=== PATIENT | male | born 1955 | race Caucasian/White ===

== ENCOUNTER 2017-08-07 06:45 | Day surgery (SDC) | payer MEDICARE, OTHER ==
--- NOTE | 2017-08-05 21:34 | EKG ---
[facility] [address] [facility] [place] [address] Signed Marked sinus bradycardia Abnormal ECG No previous ECGs available Confirmed by HEIDI ELIZABETH MD ([id number]) on 08/05/2017 9:34:52 PM Electronically Signed By: HEIDI ELIZABETH MD 08/05/17 2134 PATIENT NAME: JASE JAMES KYE Electrocardiogram DATE OF : 59 PHYSICIAN: HEIDI ELIZABETH MD REPORT #: [id number] REPORT IS CONFIDENTIAL AND NOT TO BE RELEASED WITHOUT AUTHORIZATION
[~2017-08-07] VITALS: Ht 172.7 cm; Wt 65.8 kg
[~2017-08-07 06:45] MED LIST: ARICEPT10 MG PO; ASPIRIN325 MG PO; CITALOPRAM HBR10 MG PO; FOLIC ACID1 MG PO; LEVOTHYROXINE150 MCG PO; LISINOPRIL-HCT1 EAC1 PO; METOPROLOL SUC100 MG PO; MOBIC15 MG PO; SERTRALINE HCL50 MG PO; SIMVASTATIN40 MG PO; VITAMIN D250000 UNIT PO; XANAX XR0.5 MG PO
--- NOTE | 2017-08-07 08:24 | NUR ---
08/07/17 0824 Inga Teixeira 0816-PATIENT ARRIVED TO PACU ON 4L NC O2 SAT 98% PATIENT NONAROUSABLE LAYING LEFT LATERAL. ABDOMEN SOFT.
--- NOTE | 2017-08-07 14:35 | NUR ---
PT ALERT, ORIENTED AND SUPPORTED BY FERNANDO. BOTH VERY PLEASANT, SEEMED TO HANDLE PREP APPROPRIATELY. HAVE HAD NUMEROUS SCOPES, FERNANDO EXPRESSED SOME FEAR WITH THIS SCOPE. WE DEBRIEFED, AND ENCOURAGED HER TO NOT WORRY ABOUT THINGS OUT OF OUR CONTROL AND THINGS WE MAY NOT NEED TO. SHE ACKNOWLEDGED, THANKED ME FOR VISITING. STAFF CAME IN TO CARE FOR PT. WILL FOLLOW NEEDED
--- NOTE | 2017-08-14 06:10 | OR ---
[facility] [address] [place], [place] [address] Signed DATE OF OPERATION: 08/07/2017 SURGEON: Jase Morrell MD PREOPERATIVE DIAGNOSES: 1. Personal history of colonic polyps in 2011. 2. Internal hemorrhoids. POSTOPERATIVE DIAGNOSES: 1. Moderate internal hemorrhoids. 2. Minimal external hemorrhoids. 3. A 3 mm polyp at base of the appendiceal orifice. 4. Minimal sigmoid diverticulosis. PROCEDURE: Colonoscopy with hot biopsy. ESTIMATED BLOOD LOSS: None. INDICATIONS: Jase is a 62-year-old gentleman, who returns today for followup colonoscopy. He has had a previous stroke, so his does have to help him a little bit. In 2011, his colonoscopy revealed some internal hemorrhoids as well as adenomatous polyp from the colon. There is no family history of colon cancer or polyps. We did use an anesthesia provider last time for airway control as well as to maintain his even blood pressure during because of his stroke. In addition, he uses alprazolam and citalopram each day. Therefore, simple Versed and fentanyl would not be enough to get him asleep. Consequently, we asked an anesthesia provider to help us once again. I had reviewed colonoscopy with Jase and his . They understand the nature of the test along with the risks including, but not limited to, gas bloating, crampy abdominal pain, bleeding, perforation, requiring surgery, and missed diagnosis. They had expressed understanding and wished to proceed. PROCEDURE NOTE: Jase was taken into our endoscopy suite and placed in the left lateral decubitus position. He was given IV sedation with propofol per our nurse it service continuity supervisor. A digital rectal exam was performed and again, he has a nodule in the prostate, but it was evaluated previously and found to be negative. He also has just some small external hemorrhoids. The adult colonoscope was then passed easily around into the cecum under Electronically Signed By: JASE MORRELL MD 08/14/17 0610 PATIENT NAME: JASE JAMES OPERATIVE REPORT DATE OF : 59 REPORT #: [id number] PHYSICIAN: JASE MORRELL MD PCP: CARTER SIMS DO REPORT IS CONFIDENTIAL AND NOT TO BE RELEASED WITHOUT AUTHORIZATION [facility] [address] [place], [place] [address] Signed direct visualization of camera without difficulty. His prep was good. It looked like he had a tiny polypoid 3 mm lesion at the opening of the appendiceal orifice. We went ahead and removed that easily with hot biopsy forceps. He had just a few diverticula in the sigmoid colon. They were minimal in number, moderate in size, and scattered about. Once in the rectum, the scope had been retroflexed and he does have moderate internal hemorrhoid columns. After this, the gas was suctioned out and the colonoscope removed. Jase tolerated the procedure quite well. RECOMMENDATIONS: I will see Jase back in my office in 7 to 14 days to review his results. MD ALKA Irizarry/JENNAL /[id number] cc: DO Jase Guan MD Copies: CARTER SIMS ANDREW L MD ~ Electronically Signed By: JASE MORRELL MD 08/14/17 0610 PATIENT NAME: JASE JAMES KYE OPERATIVE REPORT DATE OF : 59 REPORT #: [id number] PHYSICIAN: JASE MORRELL MD PCP: CARTER SIMS DO REPORT IS CONFIDENTIAL AND NOT TO BE RELEASED WITHOUT AUTHORIZATION
== END 2017-08-07 09:10 | disposition home or self-care (01) ==
LOC: OPS 06:45 → DS 06:45 → OPS 07:45 → DS 08:00 → OPS 09:10
PROVIDERS: Colon & Rectal Surgery
PROC: 0DBH8ZX Excision of Cecum, Via Natural or Artificial Opening Endoscopic, Diagnostic (ICD-10-PCS; principal; 2017-08-07 07:45)
DX: Z12.11 Encounter for screening for malignant neoplasm of colon (principal); K63.5 Polyp of colon; K64.8 Other hemorrhoids; K64.4 Residual hemorrhoidal skin tags; K57.30 Diverticulosis of large intestine without perforation or abscess without bleeding; I10 Essential (primary) hypertension; E78.00 Pure hypercholesterolemia, unspecified; E55.9 Vitamin D deficiency, unspecified; E03.9 Hypothyroidism, unspecified; K52.9 Noninfective gastroenteritis and colitis, unspecified; N42.89 Other specified disorders of prostate; M10.9 Gout, unspecified; F41.9 Anxiety disorder, unspecified; F40.01 Agoraphobia with panic disorder; Z98.49 Cataract extraction status, unspecified eye; Z79.82 Long term (current) use of aspirin; Z79.899 Other long term (current) drug therapy; Z79.1 Long term (current) use of non-steroidal anti-inflammatories (NSAID); Z98.890 Other specified postprocedural states; Z90.49 Acquired absence of other specified parts of digestive tract; Z87.891 Personal history of nicotine dependence; Z88.5 Allergy status to narcotic agent; Z88.8 Allergy status to other drugs, medicaments and biological substances; Z91.018 Allergy to other foods
CPT/HCPCS: 36415; 80048; 88305; 93005; 93010; J2250; J2704; J3010; J7120

== ENCOUNTER 2024-04-07 07:28 | Day surgery (SDC) | payer MEDICARE, OTHER ==
[~2024-04-07] VITALS: Ht 170.2 cm; Wt 64.1 kg
[~2024-04-07 07:28] MED LIST changes: +CIPROFLOXACIN 0.3% 5 ML HOME.PACK ONE; +IBLOOD GLUCOSE TEST STRIP 1 EA TEST VI PRN; +LACTATED RINGER'S 1,000 ML IV SCH; +LIDOCAINE HCL 1% 5 ML SDV INJ ONE; +NORVASC10 MG PO
[2024-04-07 07:49] VITALS: BP 155/75
--- NOTE | 2024-04-07 08:07 | NUR ---
S O AT BEDSIDE. WARM BLANKETS ON. EKG DONE AND LABS DRAWN.
[2024-04-07 08:15] LABS: BASOPHILS 1.2 % (0-2); EOSINOPHILS 4.4 % (0-6); HEMATOCRIT 45.8 % (35.0-50.0); HEMOGLOBIN 16.1 g/dL (12.0-18.0); LYMPHOCYTES 22.2 % (24-44); MCH 36.1 (27-36); MCHC 35.1 g/dl (30-36); MCV 102.9 fl (81-99); MONOCYTES 12.4 % (0-12); NEUTROPHILS 59.8 % (39-80); PLATELET COUNT 188 K/uL (140-440); RBC 4.45 M/ul (4.3-5.7); RDW 14.6 (10.5-15.0)
[2024-04-07 08:28] LABS: ALBUMIN 3.4 g/dL (3.4-5.0); ALBUMIN/GLOBULIN RATIO 0.89 (1.1-2.4); ANION GAP 10.9 (7-21); BILIRUBIN, TOTAL 0.8 ng/dL (0.2-1.0); BUN/CREATININE RATIO 11.92 (6.0-28.6); CALCIUM 9.1 mg/dL (8.5-10.1); CREATININE, SERUM 1.09 mg/dL (0.70-1.30); POTASSIUM 3.9 mmol/L (3.5-5.1); PROTEIN, TOTAL 7.2 g/dL (6.4-8.2)
--- NOTE | 2024-04-07 08:37 | NUR ---
LATONYA DC IN TO TALK WITH PT.
[2024-04-07] MEDS ORDERED: ondansetron HCL 4 MG/2 ML VIAL ONE (08:41)
[2024-04-07] MEDS ORDERED: propofoL 200 MG/20 ML VIAL ONE (08:41)
[2024-04-07] MEDS ORDERED: LIDOCAINE HCL 2% 5 ML SDV ONE (08:41)
[2024-04-07] MEDS ORDERED: fentaNYL citrate 100 MCG/2 ML VIAL ONE (08:41)
[2024-04-07] MEDS ORDERED: ACETAMINOPHEN 1,000 MG/100 ML VIAL ONE (08:41)
[2024-04-07] MEDS ORDERED: KETOROLAC TROMETHAMINE 30 MG/ML VIAL ONE (08:41)
[2024-04-07] MEDS ORDERED: DEXAMETHASONE SOD PHOS 4 MG/ML VIAL ONE (08:41)
[2024-04-07] MEDS ORDERED: ROCURONIUM BROMIDE 50 MG/5 ML SYR ONE (08:51)
[2024-04-07] MEDS ORDERED: SUGAMMADEX SODIUM 200 MG/2 ML ML ONE (08:51)
[2024-04-07] MEDS ORDERED: ondansetron HCL 4 MG/2 ML VIAL IV PRN (09:00)
[2024-04-07] MEDS ORDERED: HYDROmorphone HCL 1 MG/ML SYR IV PRN (09:00)
[2024-04-07] MEDS ORDERED: droPERidol 5 MG/2 ML VIAL IV PRN (09:00)
[2024-04-07] MEDS ORDERED: NALOXONE HCL 0.4 MG SYR IV PRN (09:00)
[2024-04-07] MEDS ORDERED: PROCHLORPERAZINE EDISYLATE 10 MG/2 ML VIAL IV PRN (09:00)
[2024-04-07] MEDS ORDERED: IBLOOD GLUCOSE TEST STRIP 1 EA TEST VI PRN (09:00)
[2024-04-07] MEDS ORDERED: fentaNYL citrate 50 MCG/ML SDV IV PRN (09:00)
[2024-04-07] MEDS ORDERED: CIPROFLOXACIN 0.3% 5 ML HOME.PACK OTIC ONE (09:00)
[2024-04-07] MEDS ORDERED: SEVOFLURANE 250 ML BTL INH ONE (09:03)
--- NOTE | 2024-04-07 10:20 | NUR ---
PT ARRIVES TO DS DEPT FROM PACU VIA STRETCHER. PT IS A&O AND REPORTS NO PAIN AT THIS TIME. PT ON RA W/O2>90% VIA PULSE OX, RESPIRATIONS EVEN AND UNLABORED, NO SIGNS OF DISTRESS. REPORT RECEIVED FROM PAWEL NICOLAS W/VISUALIZATION OF SURGICAL SITES. COFFEE, APPLESAUCE, AND CRACKERS PROVIDED, PT TOLERATING WITHOUT DIFFICULTY SWALLOWING. CALL LIGHT WITHIN REACH. AT BEDSIDE. PT STATES NO FURTHER NEEDS OR QUESTIONS AT THIS TIME.
[2024-04-07 10:22] VITALS: BP 135/63
--- NOTE | 2024-04-07 10:48 | NUR ---
04/07/24 1048 Sheets,Rosemarie 0948 PT ARRIVED TO PACU WITH ORAL AIRWAY AND 6L VIA MASK IN PLACE. PERIOD OF APNEA NOTED, JAW THRUST USED AND RESP NOTED. 0949 SUCTION USED AND RED/PINK TINGED SPUTUM NOTED. HOB INCREASED. 0950 PT STARTS COUGHING AND SUCITON CONTINUED TO BE USED OFF AND ON. 0951 ORAL AIRWAY REMOVED AND DEEP BREATHING ENCOURAGED. PT ABLE TO DEEP BREATHE OFF AND ON. SMALL AMOUNT OF DRAINAGE NOTED FROM LEFT NOSTRIL, MUSTASH DRESSING PLACED UNDER NOSE. 0954 O2 MASK REMOVED AND PT REORIENTED TO PACU. PT DENIES PAIN AND NAUSEA. 1020 PT RESTING IN BED WITH NO CONCERNS. PLAN OF CARE DISCUSSED. PT TRANSFERED TO MARI WITH AT BEDSIDE. REPORT GIVEN TO MARI RN.
--- NOTE | 2024-04-07 11:07 | NUR ---
LE 1045-PT UP TO RESTROOM, GAIT IS STEADY AND TOLERATED WELL. PT VOIDS 175ML OF YELLOW URINE. LE 1049-PT BACK TO ROOM AND LAYING IN BED.
[2024-04-07 11:11] VITALS: BP 139/78
--- NOTE | 2024-04-07 11:13 | NUR ---
READY TO GO HOME.
--- NOTE | 2024-04-07 11:39 | NUR ---
1120 HAS VOIDED DRANK WATER AND DENIES PAIN. WENT FOR AUTOMOBILE.
--- NOTE | 2024-04-07 20:34 | EKG ---
[facility] [address] [facility] [place] [address] Signed Sinus bradycardia Minimal voltage criteria for LVH, may be normal variant Borderline ECG When compared with ECG of 06-DEC-2022 08:38, Criteria for Lateral infarct are no longer present Nonspecific T wave abnormality no longer evident in Lateral leads Confirmed by Derrick Sanchez MD ([id number]) on 04/07/2024 8:33:52 PM Electronically Signed By: DERRICK SANCHEZ MD 04/07/242033 PATIENT NAME: SUNITARAFIAJASE Electrocardiogram DATE OF : 59 PHYSICIAN: DERRICK SANCHEZ MD REPORT #: [id number] REPORT IS CONFIDENTIAL AND NOT TO BE RELEASED WITHOUT AUTHORIZATION
--- NOTE | 2024-04-09 15:50 | PATH ---
[facility] [address] [facility] [place] [address] Signed SPECIMEN(S): A NASOPHARYNX BIOPSY SPECIMEN SOURCE: A. NASOPHARYNX BIOPSY CLINICAL HISTORY: Recurrent serous colitis media, (illegible, please correct) FINAL PATHOLOGIC DIAGNOSIS: Nasopharynx biopsy: - Benign polypoid respiratory-type mucosa with mild chronic inflammation. - Negative for increased eosinophils. - Incidental oncocytic glandular metaplasia. COMMENT: As part of [facility]' Quality Improvement Program, this case was reviewed by another member of our pathology staff. JVR:JUAN ANTONIO:tanna MICROSCOPIC EXAMINATION: Histologic sections of all submitted blocks are examined by light microscopy. These findings, together with the gross examination, support the pathologic diagnosis. GROSS DESCRIPTION: The specimen, labeled and designated "Gibran, nasopharynx biopsy," is received in formalin and consists of two red-aguero soft tissue fragments, ranging from 0.2-0.3 cm. Entirely submitted in (A1). VB (under the direct supervision of a pathologist) The Gross Description was prepared using a voice recognition system. The report was reviewed for accuracy; however, sound-alike word errors, addition and/or deletions may occur. If there is any question about this report, please contact Client Services. PERFORMING LABORATORY: Technical component was performed by [facility], [address] [place] [id number] (CLIA# [id number]). Professional interpretation was performed by [facility] - [facility], [address] [place] [address], [place] [address] (CLIA#: [id number]). Diagnostician: Rey Balderas MD PATIENT NAME: JASE JAMES PATHOLOGY DATE OF : 59 REPORT #: [id number] PHYSICIAN: [facility] PCP: MERCEDES KEEN MD REPORT IS CONFIDENTIAL AND NOT TO BE RELEASED WITHOUT AUTHORIZATION [address] [address] Signed Pathologist Electronically Signed 04/09/2024 Copies: ~ PATIENT NAME: JASE JAMES PATHOLOGY DATE OF : 59 REPORT #: [id number] PHYSICIAN: [facility] PCP: MERCEDES KEEN MD REPORT IS CONFIDENTIAL AND NOT TO BE RELEASED WITHOUT AUTHORIZATION
--- NOTE | 2024-04-14 11:13 | OR ---
[facility] [address] [place], [place] [address] Signed DATE OF OPERATION: 04/07/2024 SURGEON: Henri Krishnamurthy MD PREOPERATIVE DIAGNOSES: Chronic left serous otitis media with eustachian tube dysfunction. POSTOPERATIVE DIAGNOSES: Chronic left serous otitis media with eustachian tube dysfunction. PROCEDURES: Exam of the nasopharynx under anesthesia, biopsy of nasopharyngeal lesion, left myringotomy and ventilation tube insertion with a T-tube. ANESTHESIA: General orotracheal, TECHNICAL SALES SUPPORT MANAGER, Refugio Santos PREOPERATIVE HISTORY: Mr. James is a 68-year-old man with a several year history of left serous otitis media. This was treated with a Vasquez tube in the office. This tube has extruded. He has recurrent effusion. Nasopharyngeal exam in the office had shown some fullness on the left side around the eustachian tube orifice and he is taken to the operating for the above-mentioned procedures. PROCEDURE AND FINDINGS: After informed consent, the patient was taken to the operating room, placed in the supine position where general orotracheal anesthesia was induced. The patient and procedure were verified. The patient was repositioned with McIvor mouth gag, placed into suspension. Red rubber catheters passed through both sides of the nostril, elevation for examination of the nasopharynx. Mirror exam showed fullness of the eustachian tube orifice on the left, some inflammation. No obvious tumor or polyps. Transnasal biopsy on the left was done of the prominent eustachian tube orifice mucosa, sent to pathology. Minimal bleeding stopped afterwards. Catheter was removed. Mouth gag removed. Pharynx suctioned clear blood secretions. The left ear was then examined with the operating microscope. The eardrum was retracted and dull with a middle ear effusion. Anterior-inferior radial myringotomy was made. Serous effusion suctioned from the middle ear space. T-Tube placed in myringotomy site. Ofloxacin ophthalmic drops applied to the ear canal, cotton ball to the meatus. The patient tolerated the procedure well, was awakened, extubated, transported to recovery Electronically Signed By: HENRI KRISHNAMURTHY MD 04/14/24 1113 PATIENT NAME: JASE JAMES OPERATIVE REPORT DATE OF : 59 REPORT #: [id number] PHYSICIAN: HENRI KRISHNAMURTHY MD PCP: MERCEDES KEEN MD REPORT IS CONFIDENTIAL AND NOT TO BE RELEASED WITHOUT AUTHORIZATION [facility] [address] [place] [id number] Signed room in good condition. No complications. BLOOD LOSS: Minimal. SPECIMEN: To pathology. DRAINS: No drains. Henri Krishnamurthy MD GC/CHARLES /[id number] Copies: ~ Electronically Signed By: HENRI KRISHNAMURTHY MD 04/14/24 1113 PATIENT NAME: JASE JAMES OPERATIVE REPORT DATE OF : 59 REPORT #: [id number] PHYSICIAN: HENRI KRISHNAMURTHY MD PCP: MERCEDES KEEN MD REPORT IS CONFIDENTIAL AND NOT TO BE RELEASED WITHOUT AUTHORIZATION
== END 2024-04-07 11:20 | disposition home or self-care (01) ==
LOC: DS 07:28 → OPS 07:28 → DS 09:00 → OPS 09:00 → DS 04-08 09:00
PROVIDERS: Nurse Anesthetist, Certified Registered; ATTEND Otolaryngology
PROC: 09BN7ZX Excision of Nasopharynx, Via Natural or Artificial Opening, Diagnostic (ICD-10-PCS; 2024-04-07)
PROC: 099670Z Drainage of Left Middle Ear with Drainage Device, Via Natural or Artificial Opening (ICD-10-PCS; principal; 2024-04-07 09:00)
DX: H65.22 Chronic serous otitis media, left ear (principal); H69.92 Unspecified Eustachian tube disorder, left ear; I10 Essential (primary) hypertension; E03.9 Hypothyroidism, unspecified; E78.00 Pure hypercholesterolemia, unspecified; Z79.890 Hormone replacement therapy; Z79.899 Other long term (current) drug therapy; Z88.5 Allergy status to narcotic agent; Z88.8 Allergy status to other drugs, medicaments and biological substances; Z90.49 Acquired absence of other specified parts of digestive tract; Z86.73 Personal history of transient ischemic attack (TIA), and cerebral infarction without residual deficits; D10.6 Benign neoplasm of nasopharynx
CPT/HCPCS: 00126; 36415; 80053; 85025; 88305; 93005; 93010; J0131; J1100; J1885; J2405; J2704; J3010; J3490; J7121